=== PATIENT | female | born 1985 | race African-American/Black ===

== ENCOUNTER → 2019-01-04 | Outpatient (CLI) | payer OTHER ==
--- NOTE | 2019-01-04 19:09 | US ---
EXAMINATION TYPE: US pelvic complete DATE OF EXAM: 01/04/2019 COMPARISON: CLINICAL HISTORY: N93.80 DUB. Irregular menses. TECHNIQUE: Transabdominal (TA). Transabdominal sonographic images of the pelvis were acquired. Date of LMP: 12/30/2018, EXAM MEASUREMENTS: Uterus: 8.5 x 4.7 x 4.0 cm Endometrial Stripe: 0.3 cm Right Ovary: 3.2 x 2.1 x 1.5 cm Left Ovary: 3.7 x 2.7 x 3.0 cm 1. Uterus: Anteverted wnl 2. Endometrium: wnl 3. Right Ovary: wnl 4. Left Ovary: Hypoechoic lesion visualized with internal echoes -2.3 x 2.4 x 2.5 cm 5. Bilateral Adnexa: wnl 6. Posterior cul-de-sac: no free fluid IMPRESSION: Low-level internal echoes within the left ovarian cyst may represent hemorrhagic cyst, si milar appearance on prior ultrasound. Consider follow-up.
== END | disposition home or self-care (01) ==
LOC: RADUSWWP 14:30
PROVIDERS: ATTEND Family Medicine
DX: N83.202 Unspecified ovarian cyst, left side (principal)
CPT/HCPCS: 76856

== ENCOUNTER → 2019-06-14 | Outpatient (CLI) | payer OTHER ==
--- NOTE | 2019-06-21 12:54 | HM ---
HOLTER MONITOR REPORT Patient was monitored for 24 hours. The average rate is 78 beats per minute, minimum of 55, maximum 147 beats per minute. Ventricular ectopic activity was not noted. Supraventricular ectopic activity was present in form of rare single PACs. No diary was available. CONCLUSION: 1. Sinus mechanism baseline rhythm. 2. No ventricular ectopic activity. 3. Rare supraventricular ectopic activity. 4. No diary was available. MMODL / IJN: [id number] /
== END | disposition home or self-care (01) ==
LOC: RADECHMAIN 12:03
PROVIDERS: ATTEND Family Medicine
DX: I49.3 Ventricular premature depolarization (principal)
CPT/HCPCS: 93225; 93226

== ENCOUNTER → 2019-06-18 | Outpatient (CLI) | payer OTHER ==
--- NOTE | 2019-06-19 15:39 | US ---
EXAMINATION TYPE: US thyroid st tissue head/neck DATE OF EXAM: 06/18/2019 COMPARISON: NONE CLINICAL HISTORY: E04.9 Thyroid nodule. Enlarged thyroid per order. GLAND SIZE: Right Lobe: 4.6 x 1.2 x 1.5 cm Overall Parenchyma: heterogeneous Left Lobe: 4.3 x 1.3 x 1.5 cm Overall Parenchyma: heterogeneous Isthmus Thickness: 0.34 cm NODULES RIGHT: # of nodules measured on right: 1 1. 0.3 X 0.3 x 0.2 cm hypoechoic nodule at the mid pole. This nodule is wider than tall and shows no intranodular vascularity. Prior size: no prior LEFT: # of nodules measured on left: 0 ISTHMUS: # of nodules measured in the isthmus: 0 Bilateral neck scanned, no evidence of lymphadenopathy. IMPRESSION: 1. Subcentimeter nodule right lobe thyroid.
== END | disposition home or self-care (01) ==
LOC: RADUSWWP 17:00
PROVIDERS: ATTEND Family Medicine
DX: E04.1 Nontoxic single thyroid nodule (principal)
CPT/HCPCS: 76536